=== PATIENT | female | born 1995 | race Caucasian/White ===

== ENCOUNTER 2024-02-14 14:18 | Emergency (ER) | payer SELFPAY ==
[2024-02-14 14:20] VITALS: BP 125/99
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
[2024-02-14] MEDS: MOTRIN 400 MG PO (15:06)
== END 2024-02-14 15:43 | disposition home or self-care (01) ==
LOC: EMR 14:18
PROVIDERS: EMERGENCY PHYSICIAN Emergency Medicine
DX: S62.502A Fracture of unspecified phalanx of left thumb, initial encounter for closed fracture (principal); S60.012A Contusion of left thumb without damage to nail, initial encounter; S50.312A Abrasion of left elbow, initial encounter; F10.129 Alcohol abuse with intoxication, unspecified; W18.39XA Other fall on same level, initial encounter; R03.0 Elevated blood-pressure reading, without diagnosis of hypertension
CPT/HCPCS: 99283; 29125; 73140